=== PATIENT | female | born 1980 | race African-American/Black ===

== ENCOUNTER 2018-07-21 12:57 | Observation (INO) | payer MEDICAID ==
[2018-07-21] MEDS ORDERED: Betamethasone Acetate/Betamethasone Sod Phosphate 30 MG/5 ML MDV IM ONE (13:21)
[2018-07-21] MEDS ORDERED: Ampicillin 2 GM in Sodium Chloride 0.9% 100 ML IV ONE (13:21)
[2018-07-21] MEDS ORDERED: Ampicillin 2 GM AdvVial IV ONE (13:24)
[2018-07-21] MEDS ORDERED: Betamethasone Acetate/Betamethasone Sod Phosphate 30 MG/5 ML MDV ONE (13:25)
--- NOTE | 2018-07-21 14:57 | US ---
EXAMINATION: Transabdominal obstetric ultrasound HISTORY: Spontaneous rupture of membranes COMPARISON: 05/09/2018 TECHNIQUE: Grayscale, color Doppler and M-mode imaging obtained. FINDINGS: There is a single live intrauterine in a cephalic position. Amniotic fluid index is 9.2 cm, normal. heart rate is 139 bpm. IMPRESSION: 1. Single live intrauterine in a cephalic position. 2. Normal amniotic fluid index.
--- NOTE | 2018-07-21 15:34 | PCM.LDHP ---
L&D History of Present Illness - General Date of Service: 07/21/18 Admit Problem/Dx: Patient Status Order with Admit Dx/Problem 07/21/18 12:59 Patient Status [ADT] Routine Admission Diagnosis/Problem Admission Diagnosis/Problem Source of Information: Patient History Limitations: Reports: No Limitations - History of Present Illness Improves with: Reports: None Worsens with: Reports: None Associated Symptoms: Reports: N - Related Data Allergies/Adverse Reactions: Allergies Allergy/AdvReac Type Severity Reaction Status Date / Time No Known Allergies Allergy Verified 07/21/18 13:19 H&P Review of Systems - Review of Systems: Review Of Systems: See Below General: Reports: No Symptoms HEENT: Reports: No Symptoms Pulmonary: Reports: No Symptoms Cardiovascular: Reports: No Symptoms Gastrointestinal: Reports: No Symptoms Genitourinary: Reports: No Symptoms Musculoskeletal: Reports: No Symptoms Skin: Reports: No Symptoms Psychiatric: Reports: No Symptoms Neurological: Reports: No Symptoms Hematologic/Lymphatic: Reports: No Symptoms Immunologic: Reports: No Symptoms L&D Exam - Exam Exam: See Below - Vital Signs Weight: 137 kg - OB Specific Contraction Intensity: Mild Movement: Active Heart Tones: Present Presentation: Vertex - Lima Score Lima Score Cervix Position: Midposition Lima Score Consistency: Medium Lima Score Effacement: 31-50% Lima Score Dilation: 1-2 cm Lima Score Infant's Station: -3 Lima Score Total: 4 - Exam General: Alert, Oriented HEENT: PERRLA, Conjunctiva Clear, EACs Clear, EOMI, Hearing Intact, Mucosa Moist & [place], Nares Patent, Normal Nasal Septum, Posterior Pharynx Clear, TMs Clear Neck: Supple, Trachea Midline Lungs: Clear to Auscultation, Normal Respiratory Effort Cardiovascular: Regular Rate, Regular Rhythm GI/Abdominal Exam: Normal Bowel Sounds, Soft, Non-Tender, No Organomegaly, No Distention, No Abnormal Bruit, No Mass, Pelvis Stable Rectal Exam: Normal Exam, Normal Rectal Tone Genitourinary: Normal external exam, Normal bimanual exam, Normal speculum exam Back Exam: Normal Inspection, Full Range of Motion Extremities: Normal Inspection, Normal Range of Motion, Non-Tender, No Pedal Edema, Normal Capillary Refill Skin: Warm, Dry, Intact Neurological: Cranial Nerves Intact, Reflexes Equal Bilateral Psychiatric: Alert, Normal Affect, Normal Mood - Patient Data Lab Results Last 24 hrs: Laboratory Results - last 24 hr 07/21/18 Range/Units 13:00 Membrane Rupture POSITIVE Problem List Initiated/Reviewed/Updated: Yes Orders Last 24hrs: Active Orders 24 hr Category Date Time Status Patient Status [ADT] Routine ADT 07/21/18 12:59 Active Non Stress Test [RC] PER UNIT ROUTINE Care 07/21/18 12:59 Active Up ad Shakira [RC] ASDIRECTED Care 07/21/18 12:59 Active Vaginal Exam [RC] Click to Edit Care 07/21/18 12:59 Active Vital Signs [RC] PER UNIT ROUTINE Care 07/21/18 12:59 Active Resuscitation Status Routine Resus Stat 07/21/18 12:59 Ordered Assessment/Plan Comment:: 32+5 IUP with SROM confirmed by AmniSure and U/S which show decrease Amniotic fluid. I an starting her on antibiotic and geving her steroid and the pt will br transfer to [place] by ambulance.
[2018-07-21] MEDS ORDERED: Sodium Chloride 0.9% 50 ML ONE (16:29)
[2018-07-21] MEDS ORDERED: Ampicillin 1 GM AdvVial IV ONE (16:29)
[2018-07-21] MEDS ORDERED: Ampicillin 1 GM in Sodium Chloride 0.9% 50 ML IV ONE (17:00)
== END 2018-07-21 16:45 ==
LOC: MW.OBCHECK 12:57 → MW.OB 12:58 → MW.OBCHECK 12:59 → MW.OB 13:00
PROVIDERS: ADMIT Obstetrics & Gynecology; ATTEND Obstetrics & Gynecology
DX: O42.913 Preterm premature rupture of membranes, unspecified as to length of time between rupture and onset of labor, third trimester (principal); Z3A.32 32 weeks gestation of pregnancy
CPT/HCPCS: 76815; 84112; J0290; J7030; 96372; 96374; G0378

== ENCOUNTER 2019-03-09 12:40 | Emergency (ER) | payer OTHER, MEDICAID ==
--- NOTE | 2019-03-09 12:52 | EDM.PDOC ---
<Harsha Olmos J - Last Filed: 03/09/19 12:50> ED HPI GENERAL MEDICAL PROBLEM - General Chief Complaint: Upper Extremity Injury/Pain Stated Complaint: RIGHT HAND PAIN/BACK PAIN Time Seen by Provider: 03/09/19 12:47 - History of Present Illness INITIAL COMMENTS - FREE TEXT/NARRATIVE: HISTORY AND PHYSICAL: History of present illness: Patient is a 38-year-old black female presents status post fall which injured her right hand and left ribs she denies other trauma or concern this been no head or neck pain or trauma no shortness of breath no abdominal pain or trauma. Review of systems: As per history of present illness and below otherwise all systems reviewed and negative. Past medical history: As per history of present illness and as reviewed below otherwise noncontributory. Surgical history: As per history of present illness and as reviewed below otherwise noncontributory. Social history: No reported history of drug or alcohol abuse. Family history: As per history of present illness and as reviewed below otherwise noncontributory. Physical exam: HEENT: Atraumatic, normocephalic, pupils reactive, negative for conjunctival pallor or scleral icterus, mucous membranes moist, throat clear, neck supple, nontender, trachea midline. Lungs: Clear to auscultation, breath sounds equal bilaterally, chest mild left rib tenderness this is nonlocalized without crepitation. Heart: S1S2, regular, negative for clicks, rubs, or JVD. Abdomen: Soft, nondistended, nontender. Negative for masses or hepatosplenomegaly. Negative for costovertebral tenderness. Pelvis: Stable nontender. Genitourinary: Deferred. Rectal: Deferred. Extremities: Right hand has tenderness and swelling over the dorsal aspect CMS and neurovascular exams unremarkable Neuro: Awake, alert, oriented. Cranial nerves II through XII unremarkable. Cerebellum unremarkable. Motor and sensory unremarkable throughout. Exam nonfocal. Diagnostics: Chest x-ray with left ribs right hand x-ray Therapeutics: To be determined Impression: #1 observation status post fall #2 right hand injury #3 left rib injury Definitive disposition and diagnosis as appropriate pending reevaluation and review of above. - Related Data Allergies Allergy/AdvReac Type Severity Reaction Status Date / Time No Known Allergies Allergy Verified 03/09/19 12:52 Home Meds: Home Meds . [No Known Home Meds] 03/09/19 [History] Course - Vital Signs Last Recorded V/S: Last Vital Signs Temp 97.5 F 03/09/19 12:49 Pulse 83 03/09/19 12:49 Resp 18 03/09/19 12:49 BP 145/91 H 03/09/19 12:49 Pulse Ox 100 03/09/19 12:49 - Orders/Labs/Meds Orders: Active Orders 24 hr Category Date Time Status DME for Discharge [COMM] Stat Oth 03/09/19 13:51 Ordered Departure - Departure Disposition: Home, Self-Care 01 Clinical Impression: Rib injury Wrist injury Qualifiers: Encounter type: initial encounter Laterality: unspecified laterality Qualified Code(s): S69.90XA - Unspecified injury of unspecified wrist, hand and finger(s) , initial encounter - Discharge Information Referrals: Geo Torres MD [Primary Care Provider] - Forms: ED Department Discharge Additional Instructions: The following information is given to patients seen in the emergency department who are being discharged to home. This information is to outline your options for follow-up care. We provide all patients seen in our emergency department with a follow-up referral. The need for follow-up, as well as the timing and circumstances, are variable depending upon the specifics of your emergency department visit. If you don't have a primary care physician on staff, we will provide you with a referral. We always advise you to contact your personal physician following an emergency department visit to inform them of the circumstance of the visit and for follow-up with them and/or the need for any referrals to a consulting specialist. The emergency department will also refer you to a specialist when appropriate. This referral assures that you have the opportunity for follow-up care with a specialist. All of these measure are taken in an effort to provide you with optimal care, which includes your follow-up. Under all circumstances we always encourage you to contact your private physician who remains a resource for coordinating your care. When calling for follow-up care, please make the office aware that this follow-up is from your recent emergency room visit. If for any reason you are refused follow-up, please contact the [facility] Emergency Department at and asked to speak to the emergency department charge nurse. [facility] Primary Care [address] [place] [address] [facility] [address] [place] [id number] 1. You can alternate ibuprofen and Tylenol as directed for pain and discomfort. 2. Use wrist splint as needed for pain and discomfort. 3. Follow up with your primary care provider as discussed. Return to the ED as needed and as discussed. - My Orders Last 24 Hours: My Active Orders 03/09/19 13:51 DME for Discharge [COMM] Stat - Assessment/Plan Last 24 Hours: My Active Orders 03/09/19 13:51 DME for Discharge [COMM] Stat <Yolanda Low - Last Filed: 03/09/19 13:52> ED HPI GENERAL MEDICAL PROBLEM Right Hand Pain Score (Numeric/FACES): 10 Left Thoracic Pain Score (Numeric/FACES): 8 Review of Systems - Review of Systems Review Of Systems: Comprehensive ROS is negative, except as noted in HPI. ED EXAM, GENERAL - Physical Exam Exam: See Below (See dictation) Departure - Departure Time of Disposition: 13:51
--- NOTE | 2019-03-09 13:36 | CR ---
Chest and left ribs: Frontal view of the chest was obtained as well as 3 views of the left ribs. Comparison: No prior chest or rib exam. Heart size and mediastinum are normal. Lungs are clear. Breast prosthesis is incidentally noted. No acute fracture or other left sided rib abnormality is appreciated. Impression: 1. Nothing acute is seen on frontal chest x-ray. 2. No discrete left-sided rib abnormality is appreciated. Diagnostic code #2 MTDD
--- NOTE | 2019-03-09 13:37 | CR ---
Right hand: Three views of the right hand were obtained. Comparison: No prior hand study. Joint spaces are preserved. No fracture, dislocation or other bony abnormality is seen. Impression: No abnormality is identified on right hand exam. Diagnostic code #1 MTDD
== END 2019-03-09 14:14 | disposition home or self-care (01) ==
LOC: MW.ED 12:40
DX: S29.9XXA Unspecified injury of thorax, initial encounter (principal); S69.91XA Unspecified injury of right wrist, hand and finger(s), initial encounter; W01.0XXA Fall on same level from slipping, tripping and stumbling without subsequent striking against object, initial encounter
CPT/HCPCS: 71101-26-LT; 71101-LT; 73130-26-RT; 73130-RT; 99282; 99283-25

== ENCOUNTER 2020-03-12 15:26 | Emergency (ER) | payer SELFPAY ==
--- NOTE | 2020-03-12 15:50 | EDM.PDOC ---
ED HPI GENERAL MEDICAL PROBLEM - General Chief Complaint: Upper Extremity Injury/Pain Stated Complaint: SMASHED FINGER Time Seen by Provider: 03/12/20 15:41 Source of Information: Reports: Patient History Limitations: Reports: No Limitations - History of Present Illness INITIAL COMMENTS - FREE TEXT/NARRATIVE: Patient is a 39-year-old female who presents today for left index finger injury. Patient that she slammed her finger in a closet door and has a laceration to the finger. Patient denies any other injuries. Left Finger-Middle Pain Score (Numeric/FACES): 10 - Related Data Allergies Allergy/AdvReac Type Severity Reaction Status Date / Time No Known Allergies Allergy Verified 03/12/20 15:38 Home Meds: Home Meds Acetaminophen/HYDROcodone [[place] 325-5 MG] 1 tab PO Q6H 4 Days #16 tablet 03/12/20 [Rx] Clindamycin HCl 450 mg PO Q6HR 7 Days #28 capsule 03/12/20 [Rx] Past Medical History - Past Health History Medical/Surgical History: Denies Medical/Surgical History - Infectious Disease History Infectious Disease History: Reports: Chicken Pox Social & Family History - Family History Family Medical History: No Pertinent Family History - Tobacco Use Tobacco Use Status *Q: Never Tobacco User - Caffeine Use Caffeine Use: Reports: Soda - Recreational Drug Use Recreational Drug Use: Yes Drug Use in Last 12 Months: Yes Recreational Drug Type: Reports: Marijuana/Hashish Recreational Drug Use Frequency: Monthly Review of Systems - Review of Systems Review Of Systems: See Below Constitutional: Reports: No Symptoms Eyes: Reports: No Symptoms Ears: Reports: No Symptoms Nose: Reports: No Symptoms Mouth/Throat: Reports: No Symptoms Respiratory: Reports: No Symptoms Cardiovascular: Reports: No Symptoms GI/Abdominal: Reports: No Symptoms Genitourinary: Reports: No Symptoms Musculoskeletal: Reports: No Symptoms Skin: Reports: No Symptoms, Other (laceraton finger) Neurological: Reports: No Symptoms Psychiatric: Reports: No Symptoms ED EXAM, GENERAL - Physical Exam Exam: See Below Exam Limited By: No Limitations General Appearance: Alert, No Apparent Distress Head: Atraumatic Respiratory/Chest: No Respiratory Distress Peripheral Pulses: 2+: Radial (L), Radial (R) Extremities: Other (laceration index finger lateral side ) Neurological: Alert, Oriented, Normal Cognition, Normal Gait ED TRAUMA EXTREMITY PROCEDURES - Laceration/Wound Repair Left Upper Digit - 2nd (Index) Lac/Wound Length In cm: 3 Appearance: Superficial, Subcutaneous Distal NVT: Neuro & Vascular Intact, No Tendon Injury Anesthetic Type: Local Local Anesthesia - Lidocaine (Xylocaine): 1% Plain Local Anesthetic Volume: 3cc Skin Prep: Providone-Iodine (Betadine) Saline Irrigation (cc's): 1,000 Closed With: Sutures Suture Size: 5-0 # of Sutures: 6 Suture Type: Simple Repaired With: Vicryl Tetanus Status Addressed: Yes Course - Vital Signs Last Recorded V/S: Last Vital Signs Temp 98 F 03/12/20 15:38 Pulse 95 03/12/20 15:38 Resp 20 03/12/20 15:38 BP 135/88 03/12/20 15:38 Pulse Ox 99 03/12/20 15:38 - Orders/Labs/Meds Meds: Medications Discontinued Medications Generic Name Dose Route Start Last Admin Trade Name Freq PRN Reason Stop Dose Admin Hydrocodone Bitart/Acetaminophen 1 tab 03/12/20 15:55 03/12/20 15:59 [place] 325-5 Mg PO 03/12/20 15:56 1 tab ONETIME ONE Administration Clindamycin HCl 450 mg 03/12/20 17:04 Cleocin PO 03/12/20 17:05 ONETIME ONE Lidocaine 5 ml 03/12/20 15:55 03/12/20 16:07 Xylocaine-Mpf 2% INFILT 03/12/20 15:56 Not Given ONETIME ONE Lidocaine HCl 5 ml 03/12/20 16:03 03/12/20 16:03 Xylocaine-Mpf 1% INJECT 03/12/20 16:04 5 ml ONETIME ONE Administration Lidocaine HCl Confirm 03/12/20 16:02 03/12/20 16:07 Xylocaine-Mpf 1% Administered 03/12/20 16:03 Not Given Dose 5 ml .ROUTE .STK-MED ONE Departure - Departure Time of Disposition: 17:25 Disposition: Home, Self-Care 01 Condition: Good Clinical Impression: Finger laceration, Closed fracture of tuft of distal phalanx of finger - Discharge Information *PRESCRIPTION DRUG MONITORING PROGRAM REVIEWED*: Not Applicable *COPY OF PRESCRIPTION DRUG MONITORING REPORT IN PATIENT SHANTA: Not Applicable Prescriptions: Clindamycin HCl 450 mg PO Q6HR 7 Days #28 capsule Acetaminophen/HYDROcodone [[place] 325-5 MG] 1 tab PO Q6H 4 Days #16 tablet Instructions: Laceration Care, Adult, Finger Fracture, Adult, [id number] Referrals: PCP,None [Primary Care Provider] - Forms: ED Department Discharge Additional Instructions: The following information is given to patients seen in the emergency department who are being discharged to home. This information is to outline your options for follow-up care. We provide all patients seen in our emergency department with a follow-up referral. The need for follow-up, as well as the timing and circumstances, are variable depending upon the specifics of your emergency department visit. If you don't have a primary care physician on staff, we will provide you with a referral. We always advise you to contact your personal physician following an emergency department visit to inform them of the circumstance of the visit and for follow-up with them and/or the need for any referrals to a consulting specialist. The emergency department will also refer you to a specialist when appropriate. This referral assures that you have the opportunity for follow-up care with a specialist. All of these measure are taken in an effort to provide you with optimal care, which includes your follow-up. Under all circumstances we always encourage you to contact your private physician who remains a resource for coordinating your care. When calling for follow-up care, please make the office aware that this follow-up is from your recent emergency room visit. If for any reason you are refused follow-up, please contact the [facility] Emergency Department at and asked to speak to the emergency department charge nurse. Please follow up with your primary care physician. If you do not have a primary care physician, see below: [facility] Primary [facility] [address] [place] [id number] [facility] [address] [place] [id number] Please follow with your primary care doctor return to the ED for removals of your suture in the next 7 to 10 days. If you develop any drainage from the wound or fevers or chills please return to the ED. Please continue take your antibiotics as prescribed. Sepsis Event Note (ED) - Evaluation Sepsis Screening Result: No Definite Risk - Focused Exam Vital Signs: Vital Signs Temp Pulse Resp BP Pulse Ox 03/12/20 15:38 98 F 95 20 135/88 99 - Assessment/Plan Plan: Patient is a 39-year-old female who presents today for laceration to left finger after slamming her finger into the door. Patient will have x-ray and likely repair with sutures.
[2020-03-12] MEDS ORDERED: Lidocaine 2% 5 ML SDV INFILT ONE (15:55)
[2020-03-12] MEDS ORDERED: Acetaminophen/HYDROcodone 325-5 MG Tab PO ONE (15:55)
--- NOTE | 2020-03-12 16:40 | CR ---
Indication: Slammed hand in door. Technique: Three views of the left 2nd finger. Comparison: None Findings: Soft tissue deformity is identified at the level of the distal phalanx of the left 2nd finger. A very subtle fracture is suspected medially at the level of the distal tuft. The joint spaces are well maintained. No radiopaque foreign body is identified. Impression: Suspected fracture of the medial aspect of the tuft of the distal phalanx Dictated by Idalia Lin MD @ Mar 12 2020 4:36PM Signed by Dr. Idalia Lin @ Mar 12 2020 4:38PM
[2020-03-12] MEDS ORDERED: Clindamycin HCl 150 MG Cap PO ONE (17:04)
== END 2020-03-12 17:51 | disposition home or self-care (01) ==
LOC: MW.ED 15:26
DX: S62.631A Displaced fracture of distal phalanx of left index finger, initial encounter for closed fracture (principal); W23.0XXA Caught, crushed, jammed, or pinched between moving objects, initial encounter
CPT/HCPCS: 12002; 73140; 99283; A9270; J2001; 99282

== ENCOUNTER 2021-09-11 02:39 | Emergency (ER) | payer MEDICAID ==
[2021-09-11] MEDS ORDERED: Lidocaine 1% 5 ML VIAL INJECT ONE (02:55)
[2021-09-11] MEDS ORDERED: Diphtheria,Pertussis(Acell),Tetanus Vaccine 0.5 ML Syringe IM ONE (03:33)
[2021-09-11] MEDS ORDERED: Ibuprofen 600 MG Tab PO ONE (03:43)
== END 2021-09-11 03:53 | disposition home or self-care (01) ==
LOC: MW.ED 02:39
DX: S61.411A Laceration without foreign body of right hand, initial encounter (principal); S91.321A Laceration with foreign body, right foot, initial encounter; W25.XXXA Contact with sharp glass, initial encounter; Z23 Encounter for immunization
CPT/HCPCS: 12001; 73130; 73620; 90471; 90715; 99283; A9270

== ENCOUNTER 2023-07-17 15:30 | Emergency (ER) | payer OTHER, MEDICAID ==
[2023-07-17] MEDS: Ibuprofen 600 MG Tab PO ONE (16:44)
== END 2023-07-17 16:46 | disposition home or self-care (01) ==
LOC: MW.ED 15:30
DX: M25.562 Pain in left knee (principal); Z75.8 Other problems related to medical facilities and other health care; V47.5XXA Car driver injured in collision with fixed or stationary object in traffic accident, initial encounter; Y93.89 Activity, other specified
CPT/HCPCS: 73562; 99284; A9270; 99282

== ENCOUNTER 2024-05-08 06:24 | Day surgery (SDC) | payer MEDICAID ==
[2024-05-08] MEDS: Lactated Ringers 1,000 ML IV SCH (07:10)
[2024-05-08] MEDS ORDERED: Lidocaine 2% 5 ML SDV ONE (07:22)
[2024-05-08] MEDS ORDERED: propofoL 500 MG/50 ML 0 ML ONE (07:22)
[2024-05-08] MEDS ORDERED: Ketamine HCL/NACL, ISO-OSM 50 MG/5 ML Syringe ONE (07:22)
[2024-05-08] MEDS ORDERED: Ondansetron 4 MG/2 ML SDV ONE (07:22)
[2024-05-08] MEDS ORDERED: fentaNYL 100 MCG/2 ML SDV ONE (07:22)
[2024-05-08] MEDS ORDERED: Dexamethasone 4 MG/ML 5 ML MDV ONE (07:22)
[2024-05-08] MEDS ORDERED: Propofol 200 MG/20 ML SDV ONE (07:22)
[2024-05-08] MEDS ORDERED: dexmedeTOMIDine HCl 200 MCG/2 ML SDV ONE (07:23)
[2024-05-08] MEDS ORDERED: Sodium Chloride 0.9% 20 ML ONE (07:24)
[2024-05-08] MEDS ORDERED: Lidocaine 1% 20 ML MDV ONE (07:25)
[2024-05-08] MEDS ORDERED: Bupivacaine 0.5% 30 ML SDV ONE (07:25)
[2024-05-08] MEDS ORDERED: Ondansetron 4 MG/2 ML SDV IVPUSH PRN (07:31)
[2024-05-08] MEDS ORDERED: Metoclopramide 10 MG/2 ML SDV IVPUSH PRN (07:31)
[2024-05-08] MEDS ORDERED: Morphine 2 MG/ML SYRINGE IVPUSH PRN (07:31)
[2024-05-08] MEDS ORDERED: Naloxone 0.4 MG/ML SDV IVPUSH PRN (07:31)
[2024-05-08] MEDS ORDERED: Phenylephrine HCl In 0.9% NaCl 1 MG/10 ML Syringe IVPUSH PRN (07:31)
[2024-05-08] MEDS ORDERED: fentaNYL 50 MCG/ML SDV IVPUSH PRN (07:31)
[2024-05-08] MEDS ORDERED: Albuterol 0.083% 2.5 MG/3 ML Neb Soln NEB PRN (07:31)
[2024-05-08] MEDS ORDERED: ceFAZolin 2 GM Vial ONE (07:59)
[2024-05-08] MEDS ORDERED: ceFAZolin 2 GM in Sodium Chloride 0.9% 50 ML IV ONE (08:00)
[2024-05-08] MEDS ORDERED: HYDROmorphone 1 MG/ML Syringe ONE (09:46)
[2024-05-08] MEDS ORDERED: Ketorolac 30 MG/ML SDV ONE (09:48)
[2024-05-08] MEDS: HYDROmorphone 1 MG/ML Syringe IVPUSH PRN (11:25)
== END 2024-05-08 13:00 | disposition home or self-care (01) ==
LOC: MW.SDS 06:24
PROVIDERS: ATTEND Podiatrist Foot & Ankle Surgery
DX: M20.11 Hallux valgus (acquired), right foot (principal); M21.171 Varus deformity, not elsewhere classified, right ankle; M21.612 Bunion of left foot; Z87.891 Personal history of nicotine dependence
CPT/HCPCS: 28297; 76000; 81025; J0131; J0665; J0690; J1100; J1171; J1885; J2704; J3010; J7120; J2405; J3490

== ENCOUNTER 2024-10-09 12:45 | Emergency (ER) | payer MEDICAID | END 2024-10-09 18:36 | disposition home or self-care (01) | LOC: MW.ED 12:45 | DX: M23.52 Chronic instability of knee, left knee (principal) | CPT/HCPCS: 73562-26-LT; 73562-LT; 99283 ==

== ENCOUNTER 2025-02-17 06:49 | Day surgery (SDC) | payer MEDICAID ==
[2025-02-17] MEDS ORDERED: Ropivacaine 0.5% 5 MG/ML 30 ML SDV ONE (07:05)
[2025-02-17] MEDS ORDERED: dexmedeTOMIDine HCl 200 MCG/2 ML SDV ONE (07:06)
[2025-02-17] MEDS ORDERED: Midazolam 1 MG/ML 2 ML SDV ONE (07:40)
[2025-02-17] MEDS: Lactated Ringers 1,000 ML IV SCH (07:50)
[2025-02-17] MEDS ORDERED: ceFAZolin 2 GM in Water For Injection, Sterile 20 ML IVPUSH ONE (08:00)
[2025-02-17] MEDS ORDERED: Propofol 200 MG/20 ML SDV ONE (08:06)
[2025-02-17] MEDS ORDERED: propofoL 500 MG/50 ML 50 ML ONE ×2 (08:06→09:12)
[2025-02-17] MEDS ORDERED: Ketamine HCL/NACL, ISO-OSM 50 MG/5 ML Syringe ONE ×2 (08:07→09:14)
[2025-02-17] MEDS ORDERED: fentaNYL 250 MCG/5 ML SDV ONE (08:24)
[2025-02-17] MEDS ORDERED: Ondansetron 4 MG/2 ML SDV IVPUSH PRN (08:44)
[2025-02-17] MEDS ORDERED: fentaNYL 50 MCG/ML SDV IVPUSH PRN (08:44)
[2025-02-17] MEDS ORDERED: Albuterol 0.083% 2.5 MG/3 ML Neb Soln NEB PRN (08:44)
[2025-02-17] MEDS ORDERED: Naloxone 0.4 MG/ML SDV IVPUSH PRN (08:44)
[2025-02-17] MEDS ORDERED: Ondansetron 4 MG/2 ML SDV ONE ×2 (09:42)
[2025-02-17] MEDS ORDERED: Dexamethasone 4 MG/ML 5 ML MDV ONE (09:42)
[2025-02-17] MEDS ORDERED: Ketorolac 30 MG/ML SDV ONE (09:42)
== END 2025-02-17 11:55 | disposition home or self-care (01) ==
LOC: MW.SDS 06:49
PROVIDERS: ATTEND Orthopaedic Surgery
DX: S83.512A Sprain of anterior cruciate ligament of left knee, initial encounter (principal); S83.212A Bucket-handle tear of medial meniscus, current injury, left knee, initial encounter; Z79.899 Other long term (current) drug therapy
CPT/HCPCS: 29881; 29888; 81025; J0690; J1100; J1171; J1885; J2003; J2250; J2405; J2704; J2795; J3010; J7120; 01400; 64447; J3490